=== PATIENT | male | born 1965 | race Caucasian/White ===

== ENCOUNTER 2021-10-18 12:47 | Emergency (ER) | payer OTHER ==
[2021-10-18 13:19] VITALS: BP 122/70; PULSE 84; TEMP 98; BMI 24.4
[2021-10-18] MEDS ORDERED: KETOROLAC TROMETHAMINE 30 MG/1 ML VIAL IM ONE (15:28)
[2021-10-18] MEDS ORDERED: KETOROLAC TROMETHAMINE 15 MG/ML VIAL ONE (15:38)
[2021-10-18] MEDS ORDERED: LIDOCAINE 5% TOPICAL PATCH TP ONE (15:40)
[2021-10-18] MEDS ORDERED: LIDOCAINE 5% TOPICAL PATCH ONE (15:55)
[2021-10-18 16:15] LABS: BASO % 0.6 % (0-2.0); EOS % 1.2 % (0-4.5); HEMATOCRIT 46.3 % (35.4-49); HEMOGLOBIN 15.9 GM/dL (11.7-16.9); MCH 29.9 pg (25.7-33.7); MCHC 34.4 g/dl (32.0-35.9); MEAN CELL VOLUME 86.9 fl (80-96); MEAN PLT VOLUME 9.4 fl (7.5-11.1); MONO % 8.6 % (3.8-10.2); NEUT % 52.6 % (42.8-82.8); PLATELET COUNT 211 10^3/uL (134-434); RBC 5.32 M/mm3 (4.00-5.60); WHITE BLOOD COUNT 5.6 K/mm3 (4.0-10.0)
[2021-10-18 16:43] LABS: CALCIUM 9.2 mg/dL (8.5-10.1)
[2021-10-18 16:44] LABS: ALBUMIN 3.8 g/dl (3.4-5.0); BLOOD UREA NITROGEN 21.9 mg/dL (7-18)
[2021-10-18 16:47] LABS: CREATININE 1.2 mg/dL (0.55-1.3)
[2021-10-18 16:49] LABS: BILIRUBIN,TOTAL 0.3 mg/dL (0.2-1); TOT PROT 7.1 g/dl (6.4-8.2)
[2021-10-18] MEDS ORDERED: LIDOCAINE PATCH REMOVAL MC SCH (22:00)
== END 2021-10-18 18:11 | disposition home or self-care (01) ==
LOC: JER 12:47
PROC: 3E0233Z Introduction of Anti-inflammatory into Muscle, Percutaneous Approach (ICD-10-PCS; principal; 2021-10-18)
DX: M54.50 Low back pain, unspecified (principal)
CPT/HCPCS: 36415; 72100-TC-FY; 80053; 82550; 85025; 99284-25